=== PATIENT | female | born 1995 | race Caucasian/White ===

== ENCOUNTER 2023-01-26 08:40 | Emergency (ER) | payer SELFPAY ==
[~2023-01-26] VITALS: Ht 160 cm; Wt 64.0 kg
[2023-01-26 08:45] VITALS: BP 101/78; PULSE 104; RESP 16; TEMP 98.9; O2SAT 100
[2023-01-26 09:24] LABS: BASOPHILS % 0.3 % (0.0-2.0); EOSINOPHILS % 0.7 % (0.0-5.0); HEMATOCRIT. 40.4 % (36.0-48.0); HEMOGLOBIN. 13.8 g/dL (12.0-16.0); LYMPHOCYTES % 24.9 % (20.0-50.0); MEAN CORPUSCULAR HEMOGLOBIN 29.7 pg (28.0-32.0); MEAN CORPUSCULAR VOLUME 87.1 fL (81.0-99.0); MEAN PLATELET VOLUME 6.7 fl (7.4-10.4); MONOCYTES % 7.7 % (2.0-8.0); NEUTROPHILS % 66.4 % (40.0-76.0); PLATELET 295 x1000/uL (130-400); RED BLOOD CELL COUNT 4.64 mill/uL (4.2-5.4); RED CELL DISTRIBUTION WIDTH 12.4 % (11.6-14.6); WHITE BLOOD COUNT 4.9 x1000/uL (4.5-11.0)
[2023-01-26 09:45] LABS: HCG SCREEN NEGATIVE
[2023-01-26 09:53] LABS: ALANINE AMINOTRANSFERASE 15 IU/L (10-49); ALBUMIN 4.3 g/dL (3.2-4.8); ASPARTATE AMINOTRANSFERASE 23 IU/L (<34); BILIRUBIN TOTAL 1.4 mg/dL (0.1-1.0); CALCIUM 9.3 mg/dL (8.7-10.4); CARBON DIOXIDE 25 mEq/L (21-32); CHLORIDE 105 mEq/L (98-107); CREATININE 0.6 mg/dL (0.6-1.0); GLUCOSE 107 mg/dL (70-105); PROTEIN TOTAL 6.9 g/dL (6.0-8.3); SODIUM 140 mEq/L (136-145); UREA NITROGEN BLOOD 9 mg/dL (9-23)
[2023-01-26 10:05] LABS: ETHANOL BLOOD < 10 mg/dL (<10); POTASSIUM 2.8 mEq/L (3.5-5.1)
[2023-01-26] MEDS ORDERED: ONDANSETRON HCL 4MG/2ML INJ IV STA (10:16)
[2023-01-26] MEDS ORDERED: SODIUM CHLORIDE 0.9% 1,000 ML IV ONE (10:30)
[2023-01-26] MEDS ORDERED: POTASSIUM CHLORIDE 20MEQ/PACKET PO ONE (10:30)
[2023-01-26] MEDS ORDERED: ONDA4TAB50 MT (11:14)
== END 2023-01-26 13:07 | disposition home or self-care (01) ==
LOC: ER 08:40
DX: R11.2 Nausea with vomiting, unspecified (principal); E87.6 Hypokalemia
CPT/HCPCS: 80053; 80320; 84703; 83690; 85025; 36415; 96361; 96374; 99283; J2405; J7030; Z7610 ×2; C1893; G0480